=== PATIENT | male | born 1975 | race Caucasian/White ===

== ENCOUNTER 2016-11-25 10:40 | Outpatient (CLI) | payer BC ==
[~2016-11-25] VITALS: Ht 172.7 cm; Wt 90.9 kg
[2016-11-25 10:53] VITALS: BP 150/89; PULSE 69
[2016-11-25 12:08] VITALS: BP 132/83; PULSE 63
[2016-11-25 12:10] VITALS: BP 150/89; PULSE 63
[2016-11-25 12:30] VITALS: BP 128/82; PULSE 64
[2016-11-25 12:54] VITALS: BP 124/86; PULSE 58
[2016-11-25 13:14] VITALS: BP 120/77; PULSE 56
[2016-11-25 14:27] LABS: CSF APPEARANCE CLEAR; CSF COLOR COLORLESS
[2016-11-25 15:04] LABS: CEREBROSPINAL TUBE #4
[2016-11-28 09:36] LABS: ALBUMIN CSF 27.1 mg/dL (<=27.0); CSF IGG/ALBUMIN 0.16 (<=0.21); CSF,IGG 4.4 mg/dL (<=8.1)
[2016-11-28 09:47] LABS: CSF SYNTHESIS RATE 2.05 mg/24 h (<=12); CSF-IGG INDEX 0.52 (<=0.85); IGG/ALBUMIN SERUM 0.31 (<=0.40)
== END 2016-11-25 13:57 | disposition home or self-care (01) ==
LOC: COL.RAD 10:40
PROVIDERS: Psychiatry & Neurology Neurology
DX: R51 Headache (principal); G93.2 Benign intracranial hypertension; E23.6 Other disorders of pituitary gland

== ENCOUNTER → 2016-11-25 | Outpatient (CLI) | payer BC ==
[~2016-11-25] MED LIST: CEFTIN500 MG PO; FIORICET 325 MG1 TA1 PO; FLOMAX 0.40.4 MG/CAP PO; PERCOCET 325 MG1 TA2 PO; VALTREX 50500 MG/TAB PO; VIAGRA100 M1 PO; WELLBUTRIN XL300 M1 PO; ZOFRAN ODT4 MG PO
== END ==
LOC: ZCOL.LAB 17:29
DX: Z01.89 Encounter for other specified special examinations (principal)

== ENCOUNTER → 2019-07-27 | Outpatient (CLI) | payer BC | LOC: MHCPAIN 15:16 | DX: R51 Headache (principal); M47.812 Spondylosis without myelopathy or radiculopathy, cervical region | CPT/HCPCS: G0463 ==

== ENCOUNTER 2019-09-29 08:31 | Observation (INO) | payer BC ==
[2019-09-29] VITALS (12 sets, daily range): BP systolic 119–147; BP diastolic 67–88; PULSE 75–104; TEMP 98.2–99
[~2019-09-29] VITALS: Ht 175.3 cm; Wt 98.5 kg
[2019-09-29 09:08] LABS: BASO % 0.2 % (0.0-2.0); GRAN # 15.1 (1.4-6.5); GRAN % 89.9 % (42.2-75.2); HEMOGLOBIN 15.1 g/dl (13.5-18.0); LYMPH # 1.1 (1.2-3.4); LYMPH % 6.6 % (20.0-51.0); MEAN CELL VOLUME 90 fl (80.0-100.0); MEAN CORPUSCULAR HEMOGLOBIN 30 pg (27.0-31.0); MEAN CORPUSCULAR HGB CONC 34 g/dl (33.0-37.0); MEAN PLATELET VOLUME 9.3 fl (7.4-10.4); MONO # 0.5 (0.1-0.6); MONO % 2.9 % (1.7-9.3); PLATELET COUNT 290 K/mm3 (130-400); RED BLOOD COUNT 4.98 M/mm3 (4.20-5.60); REDCELL DISTRIBUTION WIDTH-CV 13.9 % (11.5-14.5)
[2019-09-29 09:09] LABS: ALANINE AMINOTRANSFERASE 43 U/L (4-49); ALBUMIN 4.6 gm/dL (3.5-5.0); ALKALINE PHOSPHATASE 103 U/L (50-136); ANION GAP 9 mmol/L (7-16); AST,SGOT 36 U/L (15-37); BILIRUBIN,TOTAL 0.5 mg/dL (0.0-1.0); BLOOD UREA NITROGEN 15 mg/dL (9-20); C-REACTIVE PROTEIN 1.4 mg/dL (0.0-0.9); CALCIUM 9.4 mg/dL (8.4-10.2); CARBON DIOXIDE 24 mmol/L (22-30); CHLORIDE 104 mmol/L (98-107); CREATININE, serum 0.57 (0.66-1.25); GLUCOSE 137 mg/dL (74-106); LIPASE 196 U/L (23-300); POTASSIUM 4.2 mmol/L (3.4-5.0); SODIUM 137 mmol/L (137-145); TOTAL PROTEIN 8.7 gm/dL (6.4-8.2)
[2019-09-29 09:24] LABS: TROPONIN-I < 0.012 ng/mL (0.000-0.035)
[2019-09-29 09:57] LABS: COLLECTION METHOD CLEAN CATCH
[2019-09-29 10:15] LABS: MUCOUS Present /lpf; PH 7 (5-8); SQUAMOUS EPITHELIAL None Seen /hpf; URINE APPEARANCE Clear; URINE BACTERIA None Seen /hpf; URINE BILIRUBIN Negative (NEGATIVE); URINE BLOOD Negative (NEGATIVE); URINE COLOR Yellow; URINE GLUCOSE Negative (NEGATIVE); URINE KETONE Negative (NEGATIVE); URINE LEUKOCYTE ESTERASE Negative (NEGATIVE); URINE NITRATE Negative (NEGATIVE); URINE PROTEIN(semi-quant) Negative (NEGATIVE); URINE RBC 0-2 /hpf; URINE UROBILINOGEN Negative (NEGATIVE)
[2019-09-29] MEDS ORDERED: FIORICET 325 MG1 TA1 PO (14:18)
[2019-09-29] MEDS ORDERED: ROBAXIN 50500 MG/TAB PO (14:22)
[2019-09-29] MEDS ORDERED: MOTRIN 600600 MG/TAB PO (18:28)
[2019-09-29] MEDS ORDERED: PERCOCET 325 MG1 TA2 PO (18:28)
[2019-09-29] MEDS ORDERED: [UNRECOGNIZED DRUG - OTHER] (18:34)
--- NOTE | 2019-09-29 19:15 | NUR ---
PT ARRIVES PER BED FROM PACU. IS ALERT, DROWSY. HAS A MIGRAINE, LIGHTS ARE TURNED OUT. IV TO RIGHT WRIST WITHOUT REDNESS OR SWELLING. POST OP VS INITIATED.
--- NOTE | 2019-09-29 19:39 | NUR ---
PT REPORTS MIGRAINE AND LEFT LOWER ABD PAIN 7/10. HAS 3 LAP SITES SEALED WITH SWIFTSET. MEDICATED WITH MORPHINE 2MG IV, STARTED IV ANTIBIOTIC AT THIS TIME. PT VERY DROWSY.
--- NOTE | 2019-09-29 21:30 | NUR ---
PT UP TO VOID, MOVES SLOWLY WITH STEADY GAIT. REPORTS FEELING HUNGRY. BOX LUNCH PROVIDED.
--- NOTE | 2019-09-29 22:16 | NUR ---
PT REPORTS CONTINUED PAIN, MEDICATED WITH MORPHINE 2MG IVP AND PERCOCET 1 TAB AT THIS TIME.
--- NOTE | 2019-09-30 01:27 | NUR ---
PT AWAKE, REPORTS PAIN 5/10 TO ABD AND HEAD, MORPHINE 2MG GIVEN AT THIS TIME.
[2019-09-30 03:39] VITALS: BP 148/85; PULSE 77; TEMP 97.6
--- NOTE | 2019-09-30 03:55 | NUR ---
MEDICATED WITH PERCOCET 1 TAB FOR LEFT ABD PAIN 11/24. REPORTS SOME "GAS" MOVING IN ABDOMEN. ENCOURAGED AMBULATION.
--- NOTE | 2019-09-30 04:44 | NUR ---
MEDICATED WITH SECOND PERCOCET FOR PAIN 5/10.
--- NOTE | 2019-09-30 06:00 | NUR ---
REPORTS GOOD RELIEF OF PAIN WITH SECOND PERCOCET.
--- NOTE | 2019-09-30 08:00 | NUR ---
PATIENT IS RESTING IN BED THIS MORNING. PATIENT IS A&OX4. VSS. BOWEL SOUNDS ACTIVE ALL FOUR QUADRANTS. PATIENT TOLERATING DIET WITHOUT ANY COMPLAINTS OF N/V. ABDOMINAL LAP SITES X3 ALTERNATIVE DISPUTE RESOLUTION MEDIATOR WITH EDGES WELL APPROXIMATED. ABDOMEN IS DISTENDED BUT SOFT UPON PALPATION. UPPER LUNG LOBES CLEAR UPON AUSCULTATION. LUNG BASES DIMINISHED BILATERALLY. PATIENT DENIES A PRODUCTIVE COUGH OR SOB. PATIENT COMPLAINING OF A MIGRAINE. PATIENT PASSING FLATUS. CALL LIGHT WITHIN REACH. NO NEEDS AT THIS TIME.
[2019-09-30 08:02] VITALS: BP 143/74; PULSE 70; TEMP 98.6
--- NOTE | 2019-09-30 12:35 | NUR ---
PATIENT CALLED OUT REQUESTING THE NURSE. UPON ENTRY TO THE ROOM THE PATIENT STATES THAT HE'S BEGINNING TO HAVING MUSCLE CRAMPING OVER HIS CHEST. PATIENT JUST RECEIVED HIS HOME PO MUSCLE RELAXER. PATIENT GIVEN A WARM BLANKET TO APPLY OVER CHEST AND ABDOMEN. WILL WAIT FOR MUSCLE RELAXER TO START WORKING. WILL CONTINUE TO MONITOR.
[2019-09-30 13:30] VITALS: BP 146/69; PULSE 89; TEMP 98.4
--- NOTE | 2019-09-30 16:12 | NUR ---
Continuous Improvement Coordinator met with patient to discuss discharge planning. Patient lives in [place] with his girlfriend, José Miguel (#[phone]). Patient's mother is Nydia and her phone number is [phone]. Patient states he has an adult daughter, Josefa and a sixteen year old daughter, Maria Luz. Patient sees Dr. Guzman for primary care. Patient is supposed to use a CPAP at night but states he doesn't use it. Patient is independent with ADLS. Patient does not have Advance Directives. Patient plans to return home upon discharge. No additional needs at this time.
[2019-09-30 17:26] VITALS: BP 131/75; PULSE 77; TEMP 98.2
--- NOTE | 2019-09-30 17:43 | NUR ---
CALLED AND NOTIFIED THAT THE PATIENTS PAIN IS BETTER CONTROLLED THIS AFTERNOON. THE PATIENT WOULD LIKE TO EAT DINNER AND TRY TO GO HOME LATER THIS EVENING. ORDER TO CALL IF PATIENT DECIDES TO STAY OVERNIGHT INSTEAD OF DISCHARGING THIS EVENING.
--- NOTE | 2019-09-30 18:39 | NUR ---
PATIENT MEDICATED FOR PAIN NEEDED THROUGHOUT THE SHIFT. PATIENT PATIENT IS MUCH BETTER CONTROLLED THIS AFTERNOON VS THIS AM. PATIENT EATING DINNER TRAY. CALL LIGHT WITHIN REACH. NO NEEDS AT THIS TIME.
--- NOTE | 2019-09-30 18:45 | NUR ---
REPORT GIVEN TO ENDER TRINIDAD.
--- NOTE | 2019-09-30 20:00 | NUR ---
Received patient from [facility]. Patient awaiting for his ride and ready to be dsicharged. Discharge instructions and summary given to patient. INT removed on right hand. Conditon: Stable
== END 2019-09-30 19:48 | disposition home or self-care (01) ==
LOC: COL.ER 08:31 → SURG 10:38
PROVIDERS: Emergency Medicine; ADMIT Surgery
DX: K35.80 Unspecified acute appendicitis (principal); N20.0 Calculus of kidney; G47.33 Obstructive sleep apnea (adult) (pediatric); F17.210 Nicotine dependence, cigarettes, uncomplicated; F32.9 Major depressive disorder, single episode, unspecified; G43.909 Migraine, unspecified, not intractable, without status migrainosus; N40.0 Benign prostatic hyperplasia without lower urinary tract symptoms; Z79.899 Other long term (current) drug therapy
CPT/HCPCS: C9113; G0378; J1170; J2270; J2405; J2543; J7030; J7120; Q9967

== ENCOUNTER 2019-12-23 12:55 | Outpatient (CLI) | payer BC ==
[~2019-12-23] VITALS: Ht 175.3 cm; Wt 102.5 kg
[~2019-12-23 12:55] MED LIST changes: +MOTRIN 600600 MG/TAB PO; +NEURONTIN300 MG/CAP PO; +ROBAXIN 50500 MG/TAB PO; +[UNRECOGNIZED DRUG - OTHER]
[2019-12-23 13:07] VITALS: BP 141/96; PULSE 82
[2019-12-23 14:23] VITALS: BP 119/74; PULSE 73
[2019-12-23 14:26] VITALS: BP 119/74; PULSE 71
[2019-12-23 14:41] LABS: CSF APPEARANCE HAZY; CSF COLOR RED; CSF RBC 8000 /mm3 (0-0)
[2019-12-23 14:42] LABS: CSF MONONUCLEAR 39 % (70-100); CSF POLYMORPHONUCLEAR 61 % (0-6)
[2019-12-23 14:50] VITALS: BP 116/82; PULSE 66
[2019-12-23 15:01] LABS: GLUCOSE,CSF 56 mg/dL (40-70); TOTAL PROTEIN,CSF 97 mg/dL (15-45)
[2019-12-23 15:05] VITALS: BP 116/74; PULSE 67
[2019-12-23 15:20] VITALS: BP 120/66; PULSE 67
--- NOTE | 2019-12-23 16:40 | NUR ---
DC instructions reviewed with pt. He expresses understanding. VS have remained stable following LP. Pt is tolerating sitting up on edge of bed without dizziness or severe pain. Does state he feels very mild headache "starting to set in." He is encouraged to go home to rest, stay well hydrated, continue with home meds as perscribed, and follow up with neurology with any concerns. He is assisted to 's car by wheelchair. Gait is steady with transfers.
== END 2019-12-23 16:40 | disposition home or self-care (01) ==
LOC: COL.RAD 12:55
PROVIDERS: Psychiatry & Neurology Neurology
DX: G37.9 Demyelinating disease of central nervous system, unspecified (principal); R20.2 Paresthesia of skin

== ENCOUNTER → 2019-12-28 | Outpatient (CLI) | payer BC | LOC: COL.RAD 15:00 | DX: I60.9 Nontraumatic subarachnoid hemorrhage, unspecified (principal) | CPT/HCPCS: Q9967 ==

== ENCOUNTER 2020-01-11 15:15 | Outpatient (RCR) | payer BC | END 2020-04-01 | disposition home or self-care (01) | LOC: MKS.ESL.PT | DX: G44.209 Tension-type headache, unspecified, not intractable (principal); M54.2 Cervicalgia; G89.29 Other chronic pain ==